=== PATIENT | female | born 1970 | race Caucasian/White ===

== ENCOUNTER → 2019-01-02 08:47 | Outpatient (CLI) | payer MEDICARE, MEDICAID, SELFPAY ==
--- NOTE | 2019-01-02 08:53 | NVE_ITS ---
Venous Exam Indications: 729.5 Pain in limb. 729.81 Swelling of limb. IMPRESSIONS 1. There is no evidence of significant Reflux. 2. No evidence of deep or superficial vein thrombosis involving the right lower extremity 3. No evidence of deep or superficial vein thrombosis involving the left lower extremity Complete lower extremity venous duplex evaluation. Doppler flow study including spectral analysis, color and quintero scale imaging. Location: Vascular laboratory. Patient status: Outpatient. Tables: Venous flow and imaging: + +-------+ + Location Overall Flow properties + +-------+ + Right common femoral Patent Normal phasicity; spontaneous; normal augmentation; compressible + +-------+ + Right saphenofemoral junction Patent Compressible + +-------+ + Right profunda femoral Patent Compressible + +-------+ + Right femoral Patent Normal phasicity; spontaneous; normal augmentation; compressible; no reflux + +-------+ + Right greater saphenous Patent Normal phasicity; spontaneous; normal augmentation; compressible + +-------+ + Right popliteal Patent Normal phasicity; spontaneous; normal augmentation; compressible + +-------+ + Right posterior tibial Patent Compressible + +-------+ + Right peroneal Patent Compressible + +-------+ + Right gastrocnemius Patent Compressible + +-------+ + Right soleal Patent Compressible + +-------+ + Left common femoral Patent Normal phasicity; spontaneous; normal augmentation; compressible + +-------+ + Left saphenofemoral junction Patent Compressible + +-------+ + Left profunda femoral Patent Compressible + +-------+ + Left femoral Patent Normal phasicity; spontaneous; normal augmentation; compressible + +-------+ + Left greater saphenous Patent Normal phasicity; spontaneous; normal augmentation; compressible + +-------+ + Left popliteal Patent Normal phasicity; spontaneous;
== END ==
PROVIDERS: PCP Nurse Practitioner Family; Visit Provider Nurse Practitioner Family
DX: M79.605 Pain in left leg (principal)
CPT/HCPCS: 93970

== ENCOUNTER → 2019-01-09 07:44 | Outpatient (CLI) | payer MEDICARE, MEDICAID, SELFPAY ==
--- NOTE | 2019-01-09 07:48 | MR_ITS ---
MR foot LT wo con CLINICAL INDICATION: Pain in the second, third, and fourth digits, diabetic neuropathy ITS.REASON: PAIN IN LEFT ANKLE JOINTS OF LEFT FOOT ORDERING PHYSICIAN: Debbie Garrett PATIENT AGE: 48 years Comparison: 05/05/2013 TECHNIQUE: Multiplanar multiecho sequences are performed without contrast. FINDINGS: No fracture or dislocation is evident. The ligamentous and tendinous structures appear intact. Previous radiograph demonstrated a fracture at the base of the fifth metatarsal which has healed. There is a small focal area of decreased T1 and increased T2 signal within the lateral aspect of the lateral cuneiform. This area measures approximately 10 mm and is somewhat ill-defined. Etiology is indeterminate. Plain film correlation suggested. This could be due to an area of avascular necrosis or contusion in the setting of trauma. No other significant anomalies are evident. IMPRESSION: There is a 10 mm area of bone marrow edema in the lateral aspect of the lateral cuneiform nonspecific. Avascular necrosis is a consideration. Contusion would also be considered in the setting of trauma. A neoplastic process is not totally excluded but felt to be less likely however, follow-up is recommended
== END ==
PROVIDERS: PCP Nurse Practitioner Family; Visit Provider Nurse Practitioner Family
DX: M25.572 Pain in left ankle and joints of left foot (principal)
CPT/HCPCS: 73718

== ENCOUNTER → 2019-02-20 11:31 | Outpatient (CLI) | payer MEDICARE, SELFPAY ==
[2019-02-20 16:54] LABS: Hemoglobin A1C 8.4 % (0.0-7.0)
[2019-02-20 17:52] LABS: Anion Gap 14.9 mEq/L (5-15); Aspartate Amino Transferase 7 U/L (15-37); Bilirubin,Total 0.2 mg/dL (0.2-1.0); Blood Urea Nitrogen 20 mg/dL (7-18); Carbon Dioxide 27 mmol/L (21.0-32.0); Chloride 102 mmol/L (98-107); Creatinine,Serum 1.03 mg/dL (0.55-1.02); Estimated Glomerular Filt Rate 58 ml/min (>60); GFR (African American) 70 ML/MIN (>60); Glucose 234 mg/dL (74-106); HDL Cholesterol 48 mg/dL (29-89); Potassium 4.9 mmoL/L (3.5-5.1); Sodium 139 mmol/L (136-145); Total Protein,Serum 7.1 gm/dL (6.4-8.2)
[2019-02-20 18:56] LABS: Alanine Aminotransferase 20 U/L (12-78); Albumin Level 3.9 gm/dL (3.4-5.0); Albumin/Globulin Ratio 1.2 (1.1-1.8); Alkaline Phosphatase 92 U/L (46-116); Calcium 9.4 mg/dL (8.5-10.1); Chol/HDL Ratio 3.8 (1-3.5); Cholesterol 183 mg/dL (140-200); Globulin 3.2 gm/dl (1.3-3.2); LDL Cholesterol 112 mg/dL (0-130); Triglycerides 114 mg/dL (30-200); VLDL Cholesterol 23 mg/dL (0-40)
== END ==
PROVIDERS: PCP Nurse Practitioner Family; Visit Provider Nurse Practitioner Family
DX: E11.22 Type 2 diabetes mellitus with diabetic chronic kidney disease (principal); Z79.4 Long term (current) use of insulin
CPT/HCPCS: 36415; 80053; 80061; 83036

== ENCOUNTER → 2020-04-04 08:53 | Outpatient (CLI) | payer MEDICARE, SELFPAY ==
[2020-04-04 11:36] LABS: Coronavirus 19 IgG Antibody Negative (Negative); Coronavirus 19 IgM Antibody Negative (Negative)
== END ==
PROVIDERS: Visit Provider Internal Medicine Gastroenterology
DX: Z01.89 Encounter for other specified special examinations (principal); Z12.11 Encounter for screening for malignant neoplasm of colon
CPT/HCPCS: 36415; 86328

== ENCOUNTER 2020-04-05 07:59 | Day surgery (SDC) | payer MEDICARE, SELFPAY ==
[2020-04-02 09:20] VITALS: BMI 34.7
[2020-04-05] VITALS (7 sets, daily range): BP systolic 89–174; BP diastolic 43–81; PULSE 57–63; RESP 16–18; TEMP 36.1–36.6; O2SAT 95–99
[2020-04-05 08:43] LABS: Urine Pregnancy, HCG Qual. Negative (Negative)
--- NOTE | 2020-04-05 09:09 | P.PN_ITS ---
[facility] Anesthesia Checklist - Patient Identification Patient Identification: Arm Band, Verbal (Name & ) - Structural Data Admitted From: Home Planned Operative Procedure/s: Colonoscopy Consent for Planned Operative Procedure(s) Verified: Yes Verified Documents: Surgical Consent, History and Physical - NPO Status Verified Time NPO: 00:00 - Chart Verification Results Verified: HCG - Additional verifications Fingerstick Blood Glucose: 180 - Airway Assessment C-Spine Mobility Assessed: Yes TMJ Mobility Assessed: Yes Dentition: Poor Dentition (Loose teeth) - Neurological Assessment Level of Consciousness: Awake, Alert, Appropriate, Follows Commands Hx Seizures: No Numbness or tingling in extremities: No (Hands and feet) - Anesthesia Plan Anesthesia Risk discussed: Yes Anesthesia Plan: Verified ASA Class: III Anesthesia Type: MAC [facility] History I have reviewed the patient's past medical history: Yes Medical History: Reports:: Anxiety, Depression, Diabetes Mellitus Type 2, Gastroesophageal Reflux Disease(GERD), Hypertension, Renal Disease Denies:: Cancer, Diabetes Mellitus Type 1, Internal Pacemaker, MRSA, Seizures *Have you ever received a pneumonia vaccine?: Yes *Have you received a flu vaccine this season?: Yes Other Medical History: Reports: Arthritis Comment:: Obesity Anesthesia experience/problems:: None Other Surgeries: Yes: Dilation and Curettage (with ablation). No: Pacemaker Amputation: No Fractures: Yes - *Social History Last grade of school completed: High school graduate Smoking Status: Never smoker Alcohol Intake: never Substance Use Type: denies use *Occupational Status:: unemployed Housing: house Household Members: spouse *Travel in the last 8 weeks: None - Psychiatric History Pschychiatric History:: Reports:: Anxiety, Depression Family Hx:: Diabetes, Heart Attack, Stroke, Hypertension, Hyperlipidemia, Cancer, Thyroid Disorder, Kidney Disease, Asthma
--- NOTE | 2020-04-05 09:36 | HMH.PROC ---
[facility] Procedure Note Procedure Note:: Colonoscopy Procedure Report: Colonoscopy with cold biopsies Endoscopist: Igor Lopez II, MD Referring physician: YEIMI Stack Date of Procedure: April 05, 2020 Equipment: Olympus 180 variable stiffness pediatric colonoscope Sedation: MAC sedation Indication: Mrs. Leach is a 50-year-old female with a history of dyspepsia, bloating and fullness. She had an EGD with [place] in September 2019 and had reactive gastropathy of the stomach and nonerosive GERD with esophageal spasm/dyskinesia. The patient also has had some bowel irregularity. She does have alternating diarrhea with constipation. She does state that her paternal uncle had colon cancer in his late 60s or early 70s. She reports no rectal bleeding or weight loss. This is her first colonoscopy. Procedure: Prior to the procedure, a history and physical exam was performed, and patient's medications and allergies were reviewed. The risks, benefits and alternatives of the sedation and procedure were discussed with the patient. All questions were answered and informed consent was obtained. The patient was brought to the procedure room. Patient identification and proposed procedure were verified by the physician and the nurse. The patient was placed in a left lateral decubitus position and the scope was passed under direct vision. Throughout the procedure, the patient's blood pressure, pulse, and oxygen saturations were monitored continuously. The colonoscopy was accomplished without difficulty. The patient tolerated the procedure well. Findings: On digital rectal examination there was normal rectal tone. There were no external hemorrhoids. The colonoscope was introduced through the anal canal to the rectum and advanced to the cecum. The ileocecal valve and appendiceal orifice were identified. The scope was advanced a short distance into the ileum which appeared grossly normal. The scope was then withdrawn into the colon. The cecum, ascending, transverse, descending, sigmoid and rectum were grossly normal. Cold biopsies were taken from the right colon to rule out microscopic colitis. There were no mucosal abnormalities identified. Upon retroflexion within the rectum there were grade 1-2 internal hemorrhoids.The preparation was excellent throughout with Wilkinson Preparation Score of 9. The cecal time was 12 minutes. Impression: 1. Normal colonoscopy with intubation of the terminal ileum Plan: The patient will not require screening/surveillance colonoscopy again for 10 years by ACS guidelines. 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 I would also encourage dietary measures, probiotic and bulk fiber supplementation. I will discuss the findings with the patient and family.
[2020-04-06 06:03] LABS: POC Glucose,Bedside 180 (70-110)
== END 2020-04-05 10:38 | disposition home or self-care (01) ==
LOC: OUTP 08:01
PROVIDERS: PCP Nurse Practitioner Family; Visit Provider Internal Medicine Gastroenterology
PROC: 0DJD8ZZ Inspection of Lower Intestinal Tract, Via Natural or Artificial Opening Endoscopic (ICD-10-PCS; CPT 45378; principal; 2020-04-05 09:30)
DX: R13.10 Dysphagia, unspecified (principal); R14.0 Abdominal distension (gaseous); K59.00 Constipation, unspecified; R19.7 Diarrhea, unspecified; K21.9 Gastro-esophageal reflux disease without esophagitis; I10 Essential (primary) hypertension; E11.9 Type 2 diabetes mellitus without complications; F41.9 Anxiety disorder, unspecified; Z94.4 Liver transplant status; Z82.3 Family history of stroke; Z80.9 Family history of malignant neoplasm, unspecified; Z83.3 Family history of diabetes mellitus
CPT/HCPCS: 45380; 81025; 82962; 88305

== ENCOUNTER 2021-02-26 10:00 | Outpatient (RCR) | payer MEDICARE, SELFPAY | END 2021-03-25 08:26 | disposition home or self-care (01) | LOC: PT.CARL 10:00 | PROVIDERS: PCP Nurse Practitioner Family; Visit Provider Surgery Vascular Surgery | DX: Z89.511 Acquired absence of right leg below knee (principal); M79.604 Pain in right leg | CPT/HCPCS: 97110; 97140; 97163; 97164 ==

== ENCOUNTER 2021-10-31 14:00 | Outpatient (RCR) | payer MEDICARE, SELFPAY | END 2021-10-31 14:05 | disposition home or self-care (01) | LOC: PT 14:00 | PROVIDERS: PCP Nurse Practitioner Family; Visit Provider Nurse Practitioner Family | DX: L97.811 Non-pressure chronic ulcer of other part of right lower leg limited to breakdown of skin (principal); Z89.511 Acquired absence of right leg below knee | CPT/HCPCS: 97162; 97164; 97597 ==